=== PATIENT | female | born 1980 | race Hispanic/Latino ===

== ENCOUNTER 2020-08-10 11:25 | Outpatient (CLI) | payer OTHER ==
--- NOTE | 2020-08-10 11:42 | RAD ---
RADIOGRAPH RIGHT SHOULDER 3VIEWS: DATE: 08/10/2020 HISTORY: 39-year-old female with right shoulder pain FINDINGS: There is no evidence of fracture or dislocation. There is no evidence of periostitis, permeative lesi on, osteolytic lesion, or osteoblastic lesion. The joint spaces are maintained without erosions or significant osteophytes. No rotator cuff calcifications. IMPRESSION: Normal
== END 2020-08-10 11:26 | disposition home or self-care (01) ==
LOC: NAV RAD 11:25
PROVIDERS: ATTEND Internal Medicine
DX: M25.511 Pain in right shoulder (principal); M62.838 Other muscle spasm

== ENCOUNTER 2020-11-27 09:19 | Outpatient (CLI) | payer OTHER | END 2020-11-27 09:20 | disposition home or self-care (01) | LOC: NAV ERS 09:19 | PROVIDERS: ATTEND Obstetrics & Gynecology Reproductive Endocrinology | DX: N91.2 Amenorrhea, unspecified (principal) | CPT/HCPCS: 36415; 84144; 84702 ==